=== PATIENT | female | born 1945 | race Caucasian/White ===

== ENCOUNTER 2024-08-16 21:32 | Emergency (ER) | payer SELFPAY ==
[2024-08-16] MEDS: Acetaminophen/HYDROcodone 325-10 MG Tab PO ONE (22:42)
== END 2024-08-16 23:20 | disposition home or self-care (01) ==
LOC: MW.ED 21:32
DX: M41.26 Other idiopathic scoliosis, lumbar region (principal); Z88.8 Allergy status to other drugs, medicaments and biological substances; Z79.899 Other long term (current) drug therapy; Z75.3 Unavailability and inaccessibility of health-care facilities
CPT/HCPCS: 99283; A9270; 99282

== ENCOUNTER 2024-08-21 14:19 | Emergency (ER) | payer MEDICARE ==
[2024-08-21] MEDS: Acetaminophen/HYDROcodone 325-5 MG Tab PO ONE (15:08)
== END 2024-08-21 15:15 | disposition home or self-care (01) ==
LOC: MW.ED 14:19
DX: Z76.0 Encounter for issue of repeat prescription (principal); Z88.8 Allergy status to other drugs, medicaments and biological substances; Z79.899 Other long term (current) drug therapy; Z75.3 Unavailability and inaccessibility of health-care facilities
CPT/HCPCS: 99281; A9270; 99282